=== PATIENT | male | born 1985 | race Caucasian/White ===

== ENCOUNTER 2017-11-20 15:23 | Emergency (ER) | payer MEDICAID ==
[~2017-11-20] VITALS: Ht 172.7 cm; Wt 95.0 kg
[2017-11-20 15:27] VITALS: BP 121/68
[2017-11-20] MEDS ORDERED: LIDOcaine 1% 30ml vial IJ ONE (15:50)
== END 2017-11-20 17:31 | disposition home or self-care (01) ==
LOC: ER 15:24
DX: S01.81XA Laceration without foreign body of other part of head, initial encounter (principal); F10.129 Alcohol abuse with intoxication, unspecified; F17.200 Nicotine dependence, unspecified, uncomplicated; W18.30XA Fall on same level, unspecified, initial encounter; Y93.89 Activity, other specified; Y92.89 Other specified places as the place of occurrence of the external cause; Y99.9 Unspecified external cause status; Y90.9 Presence of alcohol in blood, level not specified
CPT/HCPCS: 12011; 70450; 99284; A6449; J3490; J7030

== ENCOUNTER 2019-08-20 08:45 | Emergency (ER) | payer MEDICAID, OTHER ==
[~2019-08-20] VITALS: Ht 172.7 cm; Wt 76.2 kg
[2019-08-20 08:52] VITALS: BP 125/76
[2019-08-20] MEDS ORDERED: LORA1TAB PO (09:14)
[2019-08-20] MEDS ORDERED: FLUT16SP2 BOTHNARES (09:14)
[2019-08-20] MEDS ORDERED: GABA300C PO (09:14)
== END 2019-08-20 09:27 | disposition home or self-care (01) ==
LOC: ER 08:47
DX: F10.20 Alcohol dependence, uncomplicated (principal); J33.9 Nasal polyp, unspecified; F31.9 Bipolar disorder, unspecified; Z79.899 Other long term (current) drug therapy; Y90.9 Presence of alcohol in blood, level not specified
CPT/HCPCS: 99283

== ENCOUNTER 2022-10-10 07:16 | Emergency (ER) | payer MEDICAID ==
[~2022-10-10] VITALS: Ht 172.7 cm; Wt 84.1 kg
[~2022-10-10 07:16] MED LIST: FLUT16SP2 BOTHNARES; GABA300C PO
[2022-10-10 07:22] VITALS: BP 128/84
[2022-10-10] MEDS ORDERED: CEPH500C2 PO (11:05)
== END 2022-10-10 11:15 | disposition home or self-care (01) ==
LOC: ER 07:17
DX: L02.31 Cutaneous abscess of buttock (principal); F31.9 Bipolar disorder, unspecified; F17.200 Nicotine dependence, unspecified, uncomplicated
CPT/HCPCS: 99283

== ENCOUNTER 2022-10-14 07:33 | Emergency (ER) | payer MEDICAID ==
[~2022-10-14] VITALS: Ht 172.7 cm; Wt 90.0 kg
[~2022-10-14 07:33] MED LIST changes: +CEPH500C2 PO
[2022-10-14 09:18] VITALS: BP 135/77
[2022-10-14] MEDS ORDERED: SULF1TAB49 PO (09:18)
[2022-10-14] MEDS ORDERED: LIDOcaine 1% w/EPI 1:100,000 30ml vial (MDV) IJ ONE (09:20)
[2022-10-14] MEDS ORDERED: sulfamethoxazole/trimethoprim DS (800/160mg) tablet PO ONE (09:20)
[2022-10-14] MEDS ORDERED: HYDROcodone/acetaminophen 5mg/325mg tablet PO ONE (09:50)
== END 2022-10-14 10:06 | disposition home or self-care (01) ==
LOC: ER 07:33
DX: L02.31 Cutaneous abscess of buttock (principal)
CPT/HCPCS: 10060; 99283; J3490